=== PATIENT | female | born 1995 | race African-American/Black ===

== ENCOUNTER 2016-06-11 20:52 | Emergency (ER) | payer BC ==
[~2016-06-11] VITALS: Ht 152.4 cm; Wt 68.0 kg
[2016-06-11 20:53] VITALS: BP 139/86; PULSE 98; RESP 18; TEMP 98.1; O2SAT 100
[2016-06-11] MEDS ORDERED: PENI500T PO (22:17)
--- NOTE | 2016-06-11 22:20 | PD ---
HPI Chief Complaint: ENT Complaint Time Seen by Provider: 22:18 Travel History International Travel<30 days: No Contact w/Intl Traveler<30days: No Traveled to known affect area: No History of Present Illness HPI 20-year-old black female presents emergency Department with complaints of sore throat. She is been sick now for nearly 2 weeks. She has subjective fever and chills, congestion, sore throat, some nausea with an episode of vomiting yesterday. No diarrhea. No dysuria or frequency. No abdominal pain. Patient states that this is similar to prior strep throat in the past. [facility] Past Medical History Narrative Medical Strep throat Diminished Hearing: No Immunizations Current: Yes Tetanus Vaccination: < 5 Years ?: Not LMP: 06/07/16 Past Surgical History Other Surgery: Yes (KELOIDS ON EAR) Social History Alcohol Use: Yes (OCC) Tobacco Use: No Substance Use: No Allergies-Medications (Allergen,Severity, Reaction): Coded Allergies: No Known Allergies (Unverified , 06/11/16) Reported Meds & Prescriptions Reported Meds & Active Scripts Active Penicillin V Potassium 500 Mg Tab 500 Mg PO Q12HR Review of Systems Except as stated in HPI: all other systems reviewed are Neg General / Constitutional: Positive: Fever, Chills Eyes: No: Blurred Vision, Photophobia HENT: Positive: Sore Throat, No: Headaches Cardiovascular: No: Chest Pain or Discomfort, Irregular Rhythm Respiratory: No: Cough, Shortness of Breath Gastrointestinal: Positive: Nausea, Vomiting Genitourinary: No: Frequency, Dysuria Physical Exam Narrative GENERAL: Well-developed, well-nourished in no acute distress. Nontoxic appearing. HEAD: Normocephalic, atraumatic. EYES: Pupils equal round and reactive. Extraocular motions intact. No scleral icterus. No injection or drainage. ENT: TMs clear without erythema. The external auditory canals clear. Nose: clear . Posterior pharynx is mildly erythematous and moist. No tonsillar edema or exudate. Uvula midline. Airway patent. NECK: Trachea midline.Supple, nontender, moves head freely. No central bony tenderness or spasm. CARDIOVASCULAR: Regular rate and rhythm without murmurs, gallops, or rubs. RESPIRATORY: Clear to auscultation. Breath sounds equal bilaterally. No wheezes , rales, or rhonchi. GASTROINTESTINAL: Abdomen soft, non-tender, nondistended. No hepato-splenomegaly , or palpable masses. No guarding. EXTREMITIES: No clubbing, cyanosis, or edema. No joint tenderness, effusion, or edema noted. BACK: Nontender without deformity or crepitance. No flank tenderness. Data Data Last Documented VS Vital Signs Date Time Temp Pulse Resp B/P Pulse Ox O2 Delivery O2 Flow Rate FiO2 06/11/16 20:53 98.1 98 18 139/86 100 Orders Group A Rapid Strep Screen (06/11/16 21:43) Penicillin V Potassium (Veetids) (06/11/16 22:30) MDM Medical Decision Making Medical Screen Exam Complete: Yes Emergency Medical Condition: Yes Medical Record Reviewed: Yes Differential Diagnosis MDM: High Differential diagnoses: Strep throat, viral pharyngitis, mono, peritonsillar abscess, retropharyngeal abscess, Jorge Luis's angina Narrative Course pATIENT'S GIVEN [id number] k BY MOUTH. tHIS IS ACUTE PHARYNGITIS Diagnosis Primary Impression: Acute pharyngitis Qualified Code: J02.9 - Acute pharyngitis, unspecified etiology Patient Instructions: General Instructions Additional Instructions: Rest. Force fluids. Saltwater gargles. Tylenol and Advil. Chloraseptic [place] Cepastat lozenge. Penicillin. Follow-up with a primary care doctor in one week. Return to the ER if any problems. Med/Other Pt SpecificInfo: Prescription(s) given Scripts Penicillin V Potassium 500 Mg Fru611 Mg PO Q12HR #20 TAB Prov:Lilli Ann MD 06/11/16 Disposition: 01 DISCHARGE HOME Condition: Stable Francisco Sanderson Jun 11, 2016 22:20
[2016-06-11] MEDS ORDERED: PENICILLIN V POTASSIUM 500 MG TAB PO ONE (22:30)
== END 2016-06-11 22:47 | disposition home or self-care (01) ==
LOC: NEPB 20:52
DX: J02.9 Acute pharyngitis, unspecified (principal)
CPT/HCPCS: 87081; 87880; 99283